=== PATIENT | female | born 1955 | race Hispanic/Latino ===

== ENCOUNTER → 2018-02-13 | Outpatient (CLI) | payer OTHER | END | disposition home or self-care (01) | LOC: SHCH 14:09 | PROVIDERS: ATTEND Internal Medicine Cardiovascular Disease | DX: I65.23 Occlusion and stenosis of bilateral carotid arteries (principal) | CPT/HCPCS: 93880 ==

== ENCOUNTER → 2020-07-01 | Outpatient (CLI) | payer BC ==
[~2020-07-01] MED LIST: ASPI-556 PO; ATOR10TA69 PO; CHOL100044 PO; CYAN-35 PO; DOXY-252 PO; LOSA25TA41 PO; METO-391 PO; METO-408 PO
== END | disposition home or self-care (01) ==
LOC: SHCH 11:11
PROVIDERS: ATTEND Internal Medicine Cardiovascular Disease
DX: I65.23 Occlusion and stenosis of bilateral carotid arteries (principal); I10 Essential (primary) hypertension
CPT/HCPCS: 93306; 93356; 93880

== ENCOUNTER 2020-09-03 11:00 | Emergency (ER) | payer BC ==
[2020-09-03 11:24] LABS: BASOPHILS % (AUTO) 0.7 % (0.0-5.0); EOSINOPHILS % (AUTO) 5.6 % (0.0-8.0); LYMPHOCYTES % (AUTO) 31.3 % (21.0-51.0); MEAN CORPUSCULAR HEMOGLOBIN 30.6 pg (27.0-33.0); MEAN CORPUSCULAR HGB CONC 33.4 g/dL (32.0-36.0); MEAN CORPUSCULAR VOLUME 91.5 fL (79-99); MONOCYTES % (AUTO) 6.9 % (3.0-13.0); NEUTROPHILS % (AUTO) 55.4 % (40.0-77.0); PLATELET COUNT (AUTO) 341 K/uL (130-400); RED BLOOD CELL COUNT(AUTO) 4.81 MIL/uL (4.00-5.50); RED CELL DISTRIBUTION WIDTH 12.6 % (11.0-15.5); WHITE BLOOD COUNT (AUTO) 8.2 K/uL (4.8-10.8)
[2020-09-03 11:32] LABS: APPEARANCE,URINE Cloudy (CLEAR); BILIRUBIN,URINE Negative (NEGATIVE); COLOR,URINE Yellow (YELLOW); GLUCOSE, URINE (UA) Negative (NEGATIVE); KETONES,URINE Negative (NEGATIVE); LEUKOCYTE ESTERASE ,URINE Negative (NEGATIVE); NITRATE,URINE Negative (NEGATIVE); OCCULT BLOOD,URINE Negative (NEGATIVE); PROTEIN,URINE Negative (NEGATIVE); UROBILINOGEN,URINE 0.2 mg/dL (0.2-1.0)
[2020-09-03 11:36] LABS: CREATININE 0.9 mg/dL (0.5-1.5); POTASSIUM 3.8 mmol/L (3.5-5.1)
[2020-09-03 11:39] LABS: RBC,URINE 0-1 /HPF (0-1)
[2020-09-03 11:40] LABS: BACTERIA,URINE Rare /HPF (None Seen)
[2020-09-03 11:41] LABS: ALBUMIN 4.1 g/dL (3.5-5.0); BILIRUBIN,TOTAL 0.5 mg/dL (0.2-1.0); SQUAMOUS EPITHELIAL CELL,UR Few /HPF (0-2); TOTAL PROTEIN, SERUM 8.3 g/dL (6.0-8.3)
[2020-09-03 11:58] LABS: INR 0.99 (0.85-1.15); PARTIAL THROMBOPLASTIN TIME 24.9 SEC (26.3-35.5); PROTHROMBIN TIME 10.7 SEC (9.6-11.6)
== END 2020-09-03 15:20 | disposition home or self-care (01) ==
LOC: EDH 11:00
DX: R55 Syncope and collapse (principal); N39.0 Urinary tract infection, site not specified; I10 Essential (primary) hypertension
CPT/HCPCS: 36415; 70450; 71045; 80053; 81001; 82550; 84484; 85025; 85610; 85730; 87088; 93005

== ENCOUNTER → 2022-07-20 | Outpatient (CLI) | payer OTHER | END | disposition home or self-care (01) | LOC: RAH 13:18 | PROVIDERS: ATTEND Internal Medicine Cardiovascular Disease | DX: Z13.6 Encounter for screening for cardiovascular disorders (principal); I51.5 Myocardial degeneration | CPT/HCPCS: 75571 ==

== ENCOUNTER → 2023-08-20 | Outpatient (CLI) | payer OTHER ==
[2023-08-20 12:10] LABS: BASOPHILS # (AUTO) 0.05 K/uL (0.00-0.20); BASOPHILS % (AUTO) 0.8 % (0.0-5.0); EOSINOPHILS # (AUTO) 0.35 K/uL (0.00-0.70); EOSINOPHILS % (AUTO) 5.4 % (0.0-8.0); HEMATOCRIT 44.8 % (36-48); IMMATURE GRANULOCYTE ABSOLUTE 0.01 K/uL (0-1); LYMPHOCYTES # (AUTO) 2.4 K/uL (1.0-4.8); LYMPHOCYTES % (AUTO) 36.8 % (21.0-51.0); MEAN CORPUSCULAR HEMOGLOBIN 30.4 pg (27.0-33.0); MEAN CORPUSCULAR HGB CONC 32.4 g/dL (32.0-36.0); MEAN CORPUSCULAR VOLUME 93.9 fL (79-99); MONOCYTES # (AUTO) 0.5 K/uL (0.1-1.0); MONOCYTES % (AUTO) 7.1 % (3.0-13.0); NEUTROPHILS # (AUTO) 3.3 K/uL (1.8-7.7); NEUTROPHILS % (AUTO) 49.7 % (40.0-77.0); PLATELET COUNT (AUTO) 298 K/uL (130-400); RED BLOOD CELL COUNT(AUTO) 4.77 MIL/uL (4.00-5.50); RED CELL DISTRIBUTION WIDTH 13.1 % (11.0-15.5); WHITE BLOOD COUNT (AUTO) 6.5 K/uL (4.8-10.8)
[2023-08-20 12:40] LABS: ALBUMIN 3.7 g/dL (3.5-5.0); BILIRUBIN,TOTAL 0.5 mg/dL (0.2-1.0); CREATININE 0.9 mg/dL (0.5-1.5); POTASSIUM 4.3 mmol/L (3.5-5.1); THYROID STIMULATING HORMONE 2.1 uIU/mL (0.36-3.74)
[2023-08-20 12:41] LABS: HEMOGLOBIN A1C 5.9 % (4.0-6.0)
== END | disposition home or self-care (01) ==
LOC: LAB 09:48
PROVIDERS: ATTEND Internal Medicine Cardiovascular Disease
DX: I10 Essential (primary) hypertension (principal); E78.5 Hyperlipidemia, unspecified; I48.0 Paroxysmal atrial fibrillation; Z79.899 Other long term (current) drug therapy; Z86.73 Personal history of transient ischemic attack (TIA), and cerebral infarction without residual deficits
CPT/HCPCS: 36415; 80053; 80061; 83036; 83880; 84436; 84443; 84479; 85025

== ENCOUNTER → 2024-04-02 | Outpatient (CLI) | payer OTHER | END | disposition home or self-care (01) | LOC: SHCH 14:03 | PROVIDERS: ATTEND Internal Medicine Cardiovascular Disease | DX: I65.23 Occlusion and stenosis of bilateral carotid arteries (principal); R42 Dizziness and giddiness; Z79.899 Other long term (current) drug therapy | CPT/HCPCS: 93880 ==

== ENCOUNTER → 2024-11-01 | Outpatient (CLI) | payer OTHER ==
--- NOTE | 2024-11-04 07:52 | HMCSR ---
APPROVED REPORT EXAM: Two-dimensional and M-mode echocardiogram with Doppler and color Doppler. INDICATION ICD: I49.5 Sick sinus syndrome Hypertension I47.1 SVT 2D Dimensions RVDd3.5 cmLVEF(%)37.2 (>50%)LVED Vol(simp.)81.0 mL IVSd0.9 (0.7-1.1cm)FS(%)18 %LVES Vol(simp.)46.0 mL LVDd5.1 (3.8-5.6cm)Ao Root(2D)3.2 (2.0-3.7cm)LVEF(%, simp.)43 % PWd0.9 (0.7-1.1cm)LVOT diam1.8 (1.8-2.4cm)LA ESV INDEX (BP)30.86 mL/m2 LVDs4.0 (2.5-4.0cm)IVC diam1.3 cm Aortic Valve AoV Vmax1.3 m/Dolly Peak GR6.8 mmHgLVOT Vmax1.0 m/s AoV VTI0.3 mAo Mean GR3.6 mmHgLVOT VTI0.21 m LYNNE (VMAX)1.8 cm2AVA (VTI) 1.8 cm2 Mitral Valve MV E Vmax94.2 cm/sDECEL Drmx212 ms MV A Vmax79.1 cm/sP 1/2 T51 ms E/A ratio1.2MVA (PHT)4.3 cm2 MR Max PG91 mmHg TDI E/E' Tzxbmp19.2E/E' Kcicyre61.2 Pulmonary Valve PV Vmax0.7 m/sPV VTI0.17 mPV Mean GR1 mmHg PV Peak GR2.2 mmHg Tricuspid Valve TR Vmax2.7 m/sRAP (EST) 3 bgIqSQBK69.4 mmHg TR Peak GR29.4 mmHg Left Ventricle Left ventricular cavity size is normal. There is normal left ventricular wall thickness. LVEF is 45-5 0%. No left ventricle thrombus noted on this study. Indeterminate diastolic dysfunction. Right Ventricle The right ventricle is normal size. The right ventricular systolic function is normal. Atria The left atrium size is normal. The right atrium size is normal. Aortic Valve The aortic valve is not well visualized. Trace aortic regurgitation. Calculated aortic valve area is 1.8 cm2 with maximum pressure gradient of 6.8 mmHg and mean pressure gradient of 3.6 mmHg. Mitral Valve Mitral valve leaflets are mildly sclerotic but open well. Mitral regurgitation is mild. There is no m itral valve stenosis. Tricuspid Valve The tricuspid valve leaflets appear normal. There is mild tricuspid regurgitation. Right ventricular systolic pressure is estimated at 30-40 mmHg. Pulmonic Valve Pulmonic valve is not well visualized. There is trace pulmonic valvular regurgitation. Great Vessels The aortic root is normal in size. The IVC is normal in size and collapses >50% with inspiration. Pericardium No pericardial effusion. Conclusion Left ventricular cavity size is normal. LVEF is 45-50%. The right ventricle is normal size. The left atrium size is normal. The aortic valve is not well visualized. Trace aortic regurgitation. Calculated aortic valve area is 1.8 cm2 with maximum pressure gradient of 6.8 mmHg and mean pressure gradient of 3.6 mmHg. Mitral valve leaflets are mildly sclerotic but open well. Mitral regurgitation is mild. There is mild tricuspid regurgitation. Right ventricular systolic pressure is estimated at 30-40 mmHg. There is trace pulmonic valvular regurgitation. The aortic root is normal in size. The IVC is normal in size and collapses >50% with inspiration. No pericardial effusion.
== END | disposition home or self-care (01) ==
LOC: SHCH 10:15
PROVIDERS: ATTEND Internal Medicine Cardiovascular Disease
DX: I08.1 Rheumatic disorders of both mitral and tricuspid valves (principal); I10 Essential (primary) hypertension; I47.10 Supraventricular tachycardia, unspecified; I49.5 Sick sinus syndrome
CPT/HCPCS: 93306